=== PATIENT | female | born 1960 | race Caucasian/White ===

== ENCOUNTER → 2018-09-29 | Outpatient (CLI) | payer OTHER ==
[~2018-09-29] VITALS: Ht 162.6 cm; Wt 69.9 kg
[~2018-09-29] MED LIST: BUPROPION HCL150 M1 PO; GABAPENTIN 100100 MG PO; NORCO 7.5-3251 EACH PO
--- NOTE | 2018-10-01 12:08 | PATH ---
[facility] [address] [place] [address] PATHOLOGY RPT PROCEDURE Name: JUANSADAF Hernandez Room #: REG [facility].#: [id number] Admission: 09/29/18 Date of : 56 Discharge: Report #: [id number] Path Case #: [id number] [facility] Accession Number: [id number] . 01 Material submitted: . POLYP AT TRANSVERSE COLON X3 . 01 Clinical history: . Screening Colon polyps . 02 Diagnosis: Polyp x3, transverse colon, endoscopic biopsy: - One fragment showing a minute tubular adenoma without high grade dysplasia. - Remainder fragments showing hyperplastic polyps without dysplasia. . (IUV:mml; 09/30/2018) QLM/09/30/2018 . 02 Electronically signed: . Beatriz Deleon MD, Pathologist NPI- [id number] . 01 Gross description: . The specimen is received in formalin, labeled "Sadaf Martinez, polyp at transverse colon x3" and consists of multiple fragments of soft baker tissue measuring 1.2 x 0.6 x 0.3 cm in aggregate which are entirely submitted in A1. (SDY; 09/29/2018) SYU/SYU . 02 Pathologist provided ICD-10: D12.3 . 02 CPT . 067986 Specimen Comment: A courtesy copy of this report has been sent to Specimen Comment: [phone], . Specimen Comment: Report sent to / DR PATINO Specimen Comment: A duplicate report has been generated due to demographic updates. Performed at: [address], [place] [id number] MD Romel Ellis MD Phone: [phone] Performed at: [address] [address] PATHOLOGY RPT PROCEDURE Name: SADAF MARTINEZ Room #: REG CLI Jorge Luis#: [id number] Admission: 09/29/18 Date of : 56 Discharge: Report #: [id number] Path Case #: [id number] [address] [id number] MD Beatriz Deleon MD Phone: [phone]
== END | disposition home or self-care (01) ==
LOC: GI 08:37
DX: Z12.11 Encounter for screening for malignant neoplasm of colon (principal); Z86.010 Personal history of colon polyps; D12.3 Benign neoplasm of transverse colon; K63.5 Polyp of colon; K57.30 Diverticulosis of large intestine without perforation or abscess without bleeding; F32.9 Major depressive disorder, single episode, unspecified; Z90.711 Acquired absence of uterus with remaining cervical stump; Z98.890 Other specified postprocedural states; Z87.891 Personal history of nicotine dependence; Z79.899 Other long term (current) drug therapy
CPT/HCPCS: 62110; 62900